=== PATIENT | male | born 1965 | race Caucasian/White ===

== ENCOUNTER 2025-02-03 00:31 | Day surgery (SDC) | payer OTHER, SELFPAY ==
[2025-01-24 14:25] VITALS: BMI 44.2
--- OUTSIDE RECORDS SUMMARY | 2025-02-03 00:34 | XMS_ITS | Referral Summary ---
Author Organization [facility] BHARGAV Care Team Providers Care Interlibrary Loan Specialist Name Role Phone Malik Saxena Primary Care Provider [phone] Encounters Date Type Department Care Team Description 11/16/2024 Telephone [facility] Pulmonary [place] [address] [place] [address] [address] [place] [address] Piyush Benson MD Orders Only 11/16/2024 8:45 AM LAP POLISHER Office Visit [facility] Pulmonary [place] [address] [place] [address] [address] [place] [address] Piyush Benson MD Severe sleep apnea (Primary Dx); Psychophysiological insomnia; BMI 45.0-49.9, adult (HCC) from Last 3 Months Allergies No known active allergies Medications rpvue-9-whu-epa -lut-zeaxanthin 250-2.5-0.5 mg capsule Take by mouth Active amLODIPine-roseline zepriL (LOTREL) 5-40 mg per capsuleIndicati ons:Benign essential HTN TAKE 1 CAPSULE BY MOUTH EVERY DAY 90 capsule 3 09/15/2024 Active Zepbound 5 mg/0.5 mL solution vialIndications :BMI 45.0-49.9, adult (HCC) INJECT 0.5 ML (5 MG) UNDER THE SKIN ONCE WEEKLY (0.5ML= 50 UNITS) 2 mL 1 01/02/2025 Active Active Problems Problem Noted Date Diagnosed Date Psychophysiological insomnia 11/16/2024 Severe sleep apnea 09/29/2024 Assessment & Plan (09/29/2024 8:10 AM LAP POLISHER): Chronic currently using oral appliance Order snap diagnositic BMI 45.0-49.9, adult 06/12/2023 Assessment & Plan (09/29/2024 8:08 AM LAP POLISHER): Chronic uncontrolled Continue start zepbound in october Assessment & Plan (03/23/2024 7:52 AM CDT): Chronic uncontrolled, reduce processed carb/starch, exercise as bessie, whole foods Start zepbound Assessment & Plan (06/12/2023 11:15 AM CDT): Chronic and not at goal Start wegovy. Prostate cancer screening 01/31/2019 Assessment & Plan (05/19/2022 4:25 PM CDT): Order psa Annual physical exam 01/31/2019 Assessment & Plan (05/19/2022 4:25 PM CDT): completed Colon cancer screening 01/31/2019 Benign essential HTN 01/31/2019 Assessment & Plan (03/23/2024 7:57 AM CDT): Chronic stable and well controlled at goal Continue lotrel Assessment & Plan (09/22/2023 9:07 AM LAP POLISHER): Chronic condition stable well controlled Unfortunately patient is experiencing increased edema with the amlodipine dose of 10 mg DC Lotrel 10 20 Start Lotrel 5/40. Patient advised to monitor blood pressure to call if not controlled less than 140/90 routinely or if he continues to have side effects of edema or increasing cough Assessment & Plan (06/12/2023 11:14 AM CDT): Chronic and not at goal Start lotrel Assessment & Plan (05/19/2022 4:23 PM CDT): Chronic but lifestyle manged Home bp 120-130s/ 70s- 80s/ Assessment & Plan (01/31/2019 3:29 PM CDT): At this point the patient is wanting to work on diet and weight loss. He is going to call blood pressures averaging above 140/90. The point was started on Darion combo diuretic. Immunizations Immunization Administration Dates Next Due Influenza, Unspecified 09/29/2024(Deferr ed: Patient decision),09/22/2023(Deferred: Patient decision),06/26/2022(Deferred: Patient decision),06/26/2022(Deferred: Patient decision) Social History Tobacco Use Types Packs/Day Years Used Date Smoking Tobacco: Never Cigarettes Smokeless Tobacco: Never Tobacco Cessation:Counseling Given: Not Answered Alcohol Use Standard Drinks/Week Comments Yes 2 (1 standard drink = 0.6 oz pur e alcohol) AUDIT-C Answer Date Recorded Q1: How often do you have a drink containing alc ohol? Monthly or less 09/29/2024 Average Number of Drinks Not on file 024 Frequency of Binge Drinking Not on file 02/2024 PHQ-2 Answer Date Recorded PHQ-2 Total Score (If total score is 3 or more points, staff should administer the PHQ-9) 0 09/29/2024 Sex and Gender Information Value Date Recorded Sex Assigned at Not on file Legal Sex Male 12:08 PM CDT Gender Identity Male 12/30/2021 1:10 PM LAP POLISHER Sexual Orientation Straight 12/30/2021 1: 10 PM LAP POLISHER Last Filed Vital Signs Vital Sign Reading Time Taken Comments Blood Pressure 126/78 11/16/2024 8:26 AM LAP POLISHER Pulse 82 11/16/2024 8:26 AM LAP POLISHER Temperature 36.9 C (98.5 F) 11/16/2024 8:26 AM LAP POLISHER Respiratory Rate 18 11/16/2024 8:26 AM LAP POLISHER Oxygen Saturation 98% 11/16/2024 8:26 AM LAP POLISHER Inhaled Oxygen Concentration - - Weight 157.4 kg (347 lb) 11/16/2024 8:26 AM LAP POLISHER Height 177.8 cm (5' 10 ) 11/16/2024 8:26 AM LAP POLISHER Body Mass Index 49.79 11/16/2024 8:26 AM LAP POLISHER Plan of Treatment Not on file Procedures Procedure Name Priority Date/Time Associated Diagnosis Comments PSA SCREEN Routine 09/20/2024 12:17 PM LAP POLISHER Annual physical exam Prostate cancer screening COLONOSCOPY Routine 02/28/2019 from Last 3 Months or Most Recently Relevant to Health Maintenance Results * PSA screen (09/20/2024 12:17 PM LAP POLISHER) PSA 0.4 0.0 - 4.0 ng/mL [facility] - 01 Comment: Fox ECLIA methodology. According to the [employer], Serum PSA should decrease and remain at undetectable levels after radical prostatectomy. The AUA defines biochemical recurrence as an initial PSA value 0.2 ng/mL or greater followed by a subsequent confirmatory PSA value 0.2 ng/mL or greater. Values obtained with different assay methods or kits cannot be used interchangeably. Results cannot be interpreted as absolute evidence of the presence or absence of malignant disease. Blood 09/20/2024 12:1 7 PM LAP POLISHER 09/20/2024 Narrative [facility] - 09/21/2024 8:20 AM LAP POLISHER Performed at: - [facility] [id number] Forestry Farm Laborer: Alex Sorenson PhD, Phone: [phone] Malik GONSALEZ LAB BLOOD ORDERABLES Final Resu lt [facility] - 01 * (ABNORMAL) Colonoscopy (02/28/2019) Anatomical Region Laterality Modality Other Historical Provider MD ENDOSCOPY PROCEDURES Leigh l Result from Last 3 Months or Most Recently Relevant to Health Maintenance Insurance [facility] HMO Care Teams Interlibrary Loan Specialist Relationship Specialty Start Date End Date Malik Saxena PA PCP - General Family Medicine 07/23/22
--- OUTSIDE RECORDS SUMMARY | 2025-02-03 00:34 | XMS_ITS | Clinical Summary ---
Author Organization [facility]GAV Care Team Providers Care Tool Storage Attendant Name Role Phone Malik Saxena Primary Care Provider Allergies No known active allergies Medications uvgkr-5-vdc-epa -lut-zeaxanthin 250-2.5-0.5 mg capsule Take by mouth [...] 09/29/2024 Assessment & Plan (09/29/2024 8:10 AM LINE ASSEMBLER AIRCRAFT): Chronic currently using oral appliance Order snap diagnositic BMI 45.0-49.9, adult 06/12/2023 Assessment & Plan (09/29/2024 8:08 AM LINE ASSEMBLER AIRCRAFT): Chronic uncontrolled Continue start zepbound in october [...] lotrel Assessment & Plan (09/22/2023 9:07 AM LINE ASSEMBLER AIRCRAFT): Chronic condition stable well controlled Unfortunately patient [...] point was started on Darion combo diuretic. Encounters Date Type Department Care Team Description 11/16/2024 8:45 AM LINE ASSEMBLER AIRCRAFT Office Visit [facility] Medical Group Pulmonary [address] [address] Piyush Benson MD Severe sleep apnea (Primary Dx); Psychophysiological insomnia; BMI 45.0-49.9, adult (HCC) 11/16/[address] [facility] Pulmonary [place] [address] [facility] [address] [place] [address] Piyush Benson MD Orders Only from Last 3 Months Immunizations Immunization Administration Dates Next Due Influenza, Unspecified 09/29/2024(Deferr ed: Patient decision),09/22/2023(Deferred: Patient decision),06/26/2022(Deferred: Patient decision),06/26/2022(Deferred: Patient decision) Medical History Medical History Date Comments Obesity Family History Medical History Relation Name Comments COPD Father Pino Sr. Cancer Mother Eufemia Relation Name Status Comments Father Pino Sr. Mother Eufemia Social History Tobacco Use Types Packs/Day Years [...] CDT Gender Identity Male 12/30/2021 1:10 PM LINE ASSEMBLER [employer]CRAFT Sexual Orientation Straight 12/30/2021 1: 10 PM LINE ASSEMBLER [employer]CRAFT Obstetrics History Last Filed Vital Signs Vital Sign Reading Time Taken Comments Blood Pressure 126/78 11/16/2024 8:26 AM LINE ASSEMBLER [employer]CRAFT Pulse 82 11/16/2024 8:26 AM LINE ASSEMBLER AIRCRAFT Temperature 36.9 C (98.5 F) 11/16/2024 8:26 AM LINE ASSEMBLER AIRCRAFT Respiratory Rate 18 11/16/2024 8:26 AM LINE ASSEMBLER AIRCRAFT Oxygen Saturation 98% 11/16/2024 8:26 AM LINE ASSEMBLER AIRCRAFT Inhaled Oxygen Concentration - - Weight 157.4 kg (347 lb) 11/16/2024 8:26 AM LINE ASSEMBLER AIRCRAFT Height 177.8 cm (5' 10 ) 11/16/2024 8:26 AM LINE ASSEMBLER AIRCRAFT Body Mass Index 49.79 11/16/2024 8:26 AM LINE ASSEMBLER AIRCRAFT Plan of Treatment Health Maintenance Due Date Last Done Comments Hepatitis C Screening 1966 DTaP/Tdap/Td Vaccine (1 - Tdap) 1977 Hepatitis B Screening 1984 Zoster Vaccine (1 of 2) 2016 Colon Cancer Screening-Colonoscopy 02/29/2024 02/28/2019 Covid-19 Vaccine ( season) 2024 05/15/2021, 04/24/2021 Influenza Vaccine (Season Ended) 2025 Depression Screening 09/29/2025 09/29/2024, 06/12/2023, 05/19/2022, Additional history exists Regular Well Visit/Exam 18-64 09/29/2025 09/29/2024, 06/12/2023, 05/19/2022, Additional history exists Prostate Cancer Screening-PSA 09/20/2026 09/20/2024, 06/05/2023, 05/21/2022, Additional history exists Colon Cancer Screening-CT Colonography Discontinued 02/28/2019 Colon Cancer Screening-DNA Stool Discontinued 02/28/2019 Colon Cancer Screening-FIT Discontinued 02/28/2019 Colon Cancer Screening-Sigmoidoscopy Discontinued 02/28/2019 Pneumococcal vaccine <65 Aged Out No longer eligible based on patient's age to complete this topic Procedures Procedure Name Priority Date/Time Associated Diagnosis Comments PSA SCREEN Routine 09/20/2024 12:17 PM LINE ASSEMBLER AIRCRAFT Annual physical exam Prostate cancer screening COLONOSCOPY Routine 02/28/2019 from Last 3 Months or Most Recently Relevant to Health Maintenance Results * PSA screen (09/20/2024 12:17 PM LINE ASSEMBLER AIRCRAFT) PSA 0.4 0.0 - 4.0 ng/mL [facility] - 01 Comment: Fox ECLIA methodology. According to the [employer], Serum PSA should decrease and [...] malignant disease. Blood 09/20/2024 12:1 7 PM LINE ASSEMBLER AIRCRAFT 09/20/2024 Narrative [facility] - 09/21/2024 8:20 AM LINE ASSEMBLER AIRCRAFT Performed at: 01 - [facility] [address] [id number] Fuel Testing Technician: Alex Sorenson PhD, Phone: [phone] Malik GONSALEZ LAB BLOOD ORDERABLES Final Resu lt [facility] - 01 * (ABNORMAL) Colonoscopy (02/28/2019) Anatomical Region Laterality Modality Other Historical Provider MD ENDOSCOPY PROCEDURES Leigh l Result from Last 3 Months or Most Recently Relevant to Health Maintenance [place] [address] [facility] HMO Care Teams Tool Storage Attendant Relationship Specialty Start Date End Date Malik Saxena PA PCP - General Family Medicine 07/23/22
[2025-02-03 06:17] VITALS: BP 155/84; PULSE 77; RESP 18; TEMP 36.1; O2SAT 99; BMI 44.9
[2025-02-03] MEDS: LACTATED RINGERS 1,000 ML 150 ML IV CONT (06:25)
--- NOTE | 2025-02-03 07:25 | P.PNAN_ITS ---
Anes - Initial Pre Proc Eval Procedure: Operation Date: 02/03/25 07:30 Proposed Procedures p Screening Colonoscopy - Messi Sandoval MD Date/Time: 02/03/25 07:25 Surgeon: Messi Sandoval MD Pre Op Diagnosis: screening colon Patient Data Age: 59 Gender: M Height: 1.8 m Weight: 145.9 kg Last Vital Signs Temp 97 F L 02/03/25 06:17 Pulse 77 02/03/25 06:17 Resp 18 02/03/25 06:17 BP 155/84 H 02/03/25 06:17 Pulse Ox 99 02/03/25 06:17 O2 Del Method Room Air 02/03/25 06:17 Allergies Allergy/AdvReac Type Severity Reaction Status Date / Time No Known Allergies Allergy Verified 02/03/25 06:15 Home Medications ?Medication ?Instructions ?Recorded ?Confirmed ?Type amlodipine 5 mg-benazepril 40 mg 1 cap PO DAILY 01/24/25 02/03/25 History capsule omega 0-can-vbb-fish oil 100 1 cap PO DAILY 01/24/25 02/03/25 History mg-160 mg-1,000 mg capsule (Fish Oil) tirzepatide (weight loss) 2.5 mg subcut 01/24/25 History mg/0.5 mL subcutaneous pen injector (Zepbound) Patient hx anesthesia problems: none Family hx anesthesia problems: none Results Review: All pre-operative results and documents have been reviewed as part of the pre- operative evaluation. [facility] Social History Social History Smoking status: Never smoker Alcohol intake: never Substance use: never Substance use type: does not use Living arrangements: with family Spiritual care concerns: No Anes - Eval Final PreProcedure Day of Procedure 02/03/25 07:25 Patient weight: morbidly obese Heart: regular rate and rhythm Lungs: clear to auscultation Airway: Mallampati scale class III Neurological: alert and oriented Last oral intake: >/= 8 hours ASA classification: III Emergent: no Anesthetic plan: proceed Anesthesia type and monitoring: general GIVS and standard monitoring Results Review: All pre-operative results and documents have been reviewed as part of the pre- operative evaluation. Informed Consent: The patient's anesthetic plan and its attendant risks and benefits were discussed with the patient/family/POA. Questions were solicited and answers provided to the satisfaction of the patient/family/POA.
--- NOTE | 2025-02-03 07:30 | PM.IMHP ---
H&P: HPI History of Present Illness Date/Time: 02/03/25 07:30 Chief Complaint: Family history of colorectal cancer. Narrative: This patient has family history of colorectal cancer. His mother had it when she was 75 years old. This is the patient's 2nd colonoscopy after 5 years. Review of Systems Review of Systems: All systems reviewed & are unremarkable except as noted in HPI and below PMFSH Social History Social History Smoking status: Never smoker Alcohol intake: never Substance use: never Substance use type: does not use Living arrangements: with family Spiritual care concerns: No Meds Home Medications and Allergies Home Medications ?Medication ?Instructions ?Recorded ?Confirmed ?Type amlodipine 5 mg-benazepril 40 mg 1 cap PO DAILY 01/24/25 02/03/25 History capsule omega 3-zty-ufb-fish oil 100 1 cap PO DAILY 01/24/25 02/03/25 History mg-160 mg-1,000 mg capsule (Fish Oil) tirzepatide (weight loss) 2.5 mg subcut 01/24/25 History mg/0.5 mL subcutaneous pen injector (Zepbound) Allergies Allergy/AdvReac Type Severity Reaction Status Date / Time No Known Allergies Allergy Verified 02/03/25 06:15 Vital Signs Vital Signs - 24 hr 02/03/25 06:17 Temperature 97 F L Pulse Rate 77 Respiratory Rate 18 Blood Pressure 155/84 H Pulse Oximetry 99 Oxygen Delivery Room Air Exam Const: General: cooperative and healthy appearing Resp: Effort & Inspection: normal respiratory effort and able to speak in complete sentences Auscultation: clear to auscultation bilaterally Cardio: Rate: regular rate Rhythm: regular rhythm GI: Inspection: normal to inspection GI Palp: No No hepatosplenomegaly present Auscultation: normal bowel sounds Rectal Exam: deferred Skin: General skin exam: normal color Psych: Appearance: grossly normal Mental Status: mental status grossly normal Assessment and Plan Assessment and plan (1) Family history of colon cancer: Code(s): Z80.0 - Family history of malignant neoplasm of digestive organs Status: Acute Assessment and Plan: The patient is deemed a good candidate for the procedure. Consent signed. Will proceed.
[2025-02-03 08:00] VITALS: BP 140/78; PULSE 72; RESP 18; O2SAT 98
[2025-02-03 08:18] VITALS: BP 141/78; PULSE 71; RESP 18; O2SAT 100
[2025-02-03 08:27] VITALS: BP 138/74; PULSE 70; RESP 18; O2SAT 100
== END 2025-02-03 08:30 | disposition home or self-care (01) ==
PROVIDERS: PCP Physician Assistant Medical; Referring Provider Physician Assistant Medical; Visit Provider Internal Medicine Gastroenterology
PROC: 0DJD8ZZ Inspection of Lower Intestinal Tract, Via Natural or Artificial Opening Endoscopic (ICD-10-PCS; CPT 45378; principal; 2025-02-03 07:30)
DX: Z12.11 Encounter for screening for malignant neoplasm of colon (principal); D12.5 Benign neoplasm of sigmoid colon; D12.2 Benign neoplasm of ascending colon; K57.30 Diverticulosis of large intestine without perforation or abscess without bleeding; E66.01 Morbid (severe) obesity due to excess calories; Z68.41 Body mass index [BMI] 40.0-44.9, adult; Z79.85 Long-term (current) use of injectable non-insulin antidiabetic drugs; Z80.0 Family history of malignant neoplasm of digestive organs
CPT/HCPCS: 45385; 88305; J2003; J2704; J7120